=== PATIENT | male | born 1995 | race Caucasian/White ===

== ENCOUNTER 2021-10-28 22:45 | Emergency (ER) | payer SELFPAY ==
[~2021-10-28] VITALS: Ht 175.3 cm; Wt 77.3 kg
[2021-10-29] MEDS ORDERED: PERCOCET 5MG/325MG TAB PO ONE (00:45)
[2021-10-29] MEDS ORDERED: OXYCODONE/APAP 5MG/325MG(BULK FOR ED) 1 TABLET PO ONE (01:40)
[2021-10-29] MEDS ORDERED: PERC5TAB12 PO (01:53)
[2021-10-29 02:10] VITALS: BP 125/60
== END 2021-10-29 02:10 | disposition home or self-care (01) ==
LOC: M ED 22:45
DX: S82.191A Other fracture of upper end of right tibia, initial encounter for closed fracture (principal); V00.211A Fall from ice-skates, initial encounter; Y92.330 Ice skating rink (indoor) (outdoor) as the place of occurrence of the external cause; Y93.22 Activity, ice hockey